=== PATIENT | female | born 1980 | race African-American/Black ===

== ENCOUNTER 2017-08-22 17:09 | Emergency (ER) | payer SELFPAY ==
[2017-08-22] MEDS ORDERED: Lidocaine 1% w/Epinephrine 1:200K 30 ML VIAL ONE (20:32)
[2017-08-22] MEDS ORDERED: Adacel (T-DAP) 0.5 ML VIAL ONE (21:08)
[2017-08-22] MEDS ORDERED: Sulfameth/Trimethoprim DS 800-160mg TAB ONE (22:36)
[2017-08-22] MEDS ORDERED: Bacitracin Zinc 1 Packet ONE (22:37)
== END 2017-08-22 22:43 | disposition home or self-care (01) ==
LOC: ERS 17:09
DX: S51.812A Laceration without foreign body of left forearm, initial encounter (principal); F17.210 Nicotine dependence, cigarettes, uncomplicated; W26.0XXA Contact with knife, initial encounter
CPT/HCPCS: 12002; 90471; 90715

== ENCOUNTER 2018-02-19 11:07 | Emergency (ER) | payer OTHER, SELFPAY ==
[2018-02-19] MEDS ORDERED: Acetaminophen 500 MG TAB ONE (12:06)
--- NOTE | 2018-02-19 12:23 | RAD ---
3 VIEWS LEFT WRIST: Date: 02/19/18 COMPARISON: None. HISTORY: Left wrist pain after slipping and fall off ladder. FINDINGS: Three views of the left wrist show no evidence of acute fracature or dislocation. No degenerative leeann nges are seen. No significant soft tissue swelling is seen. IMPRESSION: Unremarkable exam. POS: [facility]
--- NOTE | 2018-02-19 12:53 | RAD ---
TWO VIEWS RIGHT FOREARM: Comparison: None. History: Fall yesterday morning off a ladder at work with right arm pain. FINDINGS: Two views of the right forearm shows no evidence of acute fracture or dislocation. Mild soft tissue s welling is seen. No degenerative changes are present. IMPRESSION: No evidence of acute osseous abnormality. POS: [facility]
== END 2018-02-19 13:04 | disposition home or self-care (01) ==
LOC: ERS 11:07
DX: S09.90XA Unspecified injury of head, initial encounter (principal); S51.811A Laceration without foreign body of right forearm, initial encounter; S69.92XA Unspecified injury of left wrist, hand and finger(s), initial encounter; W11.XXXA Fall on and from ladder, initial encounter

== ENCOUNTER 2019-08-12 17:36 | Emergency (ER) | payer SELFPAY | END 2019-08-12 18:20 | disposition home or self-care (01) | LOC: ERS 17:36 | DX: M54.2 Cervicalgia (principal) | CPT/HCPCS: 99282 ==

== ENCOUNTER 2023-04-17 18:10 | Emergency (ER) | payer BC, SELFPAY ==
[~2023-04-17 18:10] MED LIST: Iopamidol-370 76% 500 ML MDV (1 ML CHARGE) ONE
[2023-04-17] MEDS ORDERED: diphenhydrAMINE 50 MG/ML VIAL ONE (19:43)
[2023-04-17] MEDS ORDERED: Prochlorperazine 10 MG/2 ML VIAL IVP SCH (20:00)
[2023-04-17 20:05] LABS: #Monocytes 0.4 thou/uL (0.11-0.59); #Neutrophils 5.8 thou/uL (1.40-6.50); %Basophils 0.3 % (0.0-1.0); %Eosinophils 0.3 % (0.0-10.0); %Lymphocytes 18.9 % (21.0-51.0); %Monocytes 4.6 % (0.0-10.0); %Neutrophils 75.6 % (42.0-75.0); Hemoglobin 15.1 g/dL (12.0-16.0); Mean Corpuscular HGB CONC 34.3 g/dL (32.0-36.0); Mean Corpuscular Hemoglobin 29.7 pg (27.0-31.0); Mean Corpuscular Volume 86.4 fl (78.0-98.0); Mean Platelet Volume 9.9 fL (7.4-10.4); Platelet Count 270 10x3/uL (130-400); RBC Distribution Width 13.5 % (11.5-14.5); Red Blood Cell (RBC) Count 5.09 mill/uL (4.20-5.40); White Blood Cell (WBC) Count 7.7 10x3/uL (4.8-10.8)
[2023-04-17 20:21] LABS: BHCG - Serum Negative (NEGATIVE); Pregs Control Background? CLEAR/WHITE (CLR/WHITE); Pregs Control Bar Appear? YES (CONTROL BAR)
[2023-04-17 20:37] LABS: Troponin I Less than 0.010 ng/mL (< 0.028)
[2023-04-17 20:58] LABS: ALT (SGPT) 15 U/L (8-55); AST (SGOT) 19 U/L (5-34); Albumin 4.4 g/dL (3.5-5.0); Alkaline Phosphatase 81 U/L (40-110); Anion Gap 13 mmol/L (10-20); BUN (Urea Nitrogen) 12 mg/dL (7.0-18.7); Bilirubin, Total 0.4 mg/dL (0.2-1.2); Calc. Creatinine Clearance 0 mL/min (70-130); Calcium 9.7 mg/dL (7.8-10.44); Carbon Dioxide 22 mmol/L (22-29); Chloride 105 mmol/L (98-107); Estimated GFR 92; Globulin 3.7 g/dL (2.4-3.5); Glucose 105 mg/dL (70-105); Potassium 3.7 mmol/L (3.5-5.1); Protein, Total 8.1 g/dL (6.0-8.3); Sodium 136 mmol/L (136-145)
[2023-04-17] MEDS ORDERED: methylPREDNISolone Sod Succ/PF 125 MG/2 ML VIAL ONE (21:18)
[2023-04-17] MEDS ORDERED: Ketorolac Tromethamine 30 MG/ML VIAL ONE (21:18)
== END 2023-04-17 22:15 | disposition home or self-care (01) ==
LOC: ERS 18:10
DX: R51.9 Headache, unspecified (principal); R42 Dizziness and giddiness; R11.2 Nausea with vomiting, unspecified; I10 Essential (primary) hypertension
CPT/HCPCS: 70450; 70496; 80053; 83735; 84484; 84703; 85025; 93005; 96361; 96374; 96375; J0780; J1200; J1885; J2930; Q9967